=== PATIENT | female | born 1985 | race Caucasian/White ===

== ENCOUNTER 2024-02-13 16:01 | Emergency (ER) | payer MEDICAID, SELFPAY ==
--- NOTE | ~2024-02-13 | XR_ITS ---
EXAMINATION: XR toe 5th RT min 2V DATE: 02/13/2024 16:35 INDICATION: Right fifth toe injury. TECHNIQUE: 3 views of right fifth toe were obtained. COMPARISON: Right foot radiographs 07/19/2006 FINDINGS: Bone alignment is normal. 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 There is a nondisplaced transverse fracture of fifth middle phalanx. Joint spaces are normal. IMPRESSION: 1. Nondisplaced transverse fracture of fifth middle phalanx. Reviewed, dictated and finalized at location E.
[2024-02-13 16:16] VITALS: BP 105/66; PULSE 81; RESP 18; TEMP 36.9; O2SAT 100
--- NOTE | 2024-02-13 16:37 | ED.LOWEXIN ---
HPI - Extremity Injury (Lower) General Chief Complaint: Extremity Injury, Lower Stated Complaint: Pinky Toe Rt Foot Pain and Swelling Time Seen by Provider: 02/13/24 16:37 Source: patient Mode of arrival: ambulatory Limitations: no limitations History of Present Illness HPI Narrative: 38-year-old female presents with complaint of pain, swelling and bruising to right 5th toe. Patient states last night was at a [employer] and throwing water balloons with kids and jammed toe into brick retaining wall. Patient ambulatory with limp. Patient concerned for toe fracture. Distal neurovascularly intact. All systems reviewed and negative except as noted above. Related Data Allergies Allergy/AdvReac Type Severity Reaction Status Date / Time penicillin G Allergy Mild Verified 06/30/10 16:46 Penicillins Allergy Unknown Verified 08/27/17 21:20 Review of Systems Review of Systems: CONSTITUTIONAL: Denies fever, chills, or sweats. EYES: Denies visual changes, redness, or discharge. ENT: Denies rhinorrhea, congestion, sore throat, or otalgia. CARDIOVASCULAR: Denies chest pain, palpitations, or edema. RESPIRATORY: Denies cough or dyspnea. GASTROINTESTINAL: Denies abdominal pain, nausea, vomiting, or diarrhea. GENITOURINARY: Denies dysuria or hematuria. SKIN: Denies rash or itching. MUSCULOSKELETAL: Denies back pain, joint pain, or myalgia. Reports bruising, swelling and pain to right 5th toe. NEUROLOGIC: Denies headache, numbness, or weakness. PSYCHIATRIC: Denies anxiety or depression. All other systems reviewed are negative, except as documented in HPI. PMFSH Comments At time of signature, agree with nursing past medical, surgical, social and family history. There is no relevant family history pertinent to the presenting complaint. Exam Narrative: GENERAL: This is a well-nourished, well-developed patient, in no apparent distress. HEAD: normocephalic, atraumatic. EYES: PERRL. Sclera clear/white. Vision is grossly intact. EARS: External ears normal NOSE: External nose normal NECK: Neck supple, non-tender without lymphadenopathy, masses or thyromegaly. CARDIOVASCULAR: Regular rate and rhythm without murmurs, gallops, or rubs. RESPIRATORY: Clear to auscultation. Breath sounds equal bilaterally. No wheezes, rales, or rhonchi. SKIN: warm, Dry, intact with no suspicious lesions or rash, good texture and turgor. NEURO: awake, alert, and oriented to person, place and time. There were no obvious focal neurologic abnormalities. EXTREMITIES: No joint tenderness, effusion. Swelling to right 5th toe with bruising. Tenderness on palpation middle and distal phalanx. Course Course Level of Care: Express Care Visit Vital Signs Vital signs: Vital Signs Temperature 36.9 C 02/13/24 16:16 Pulse Rate 81 02/13/24 16:16 Respiratory Rate 18 02/13/24 16:16 Blood Pressure 105/66 02/13/24 16:16 Pulse Oximetry 100 02/13/24 16:16 Oxygen Delivery Room Air 02/13/24 16:16 Temperature 36.9 C 02/13/24 16:16 Pulse Rate 81 02/13/24 16:16 Respiratory Rate 18 02/13/24 16:16 Blood Pressure 105/66 02/13/24 16:16 Pulse Oximetry 100 02/13/24 16:16 Oxygen Delivery Room Air 02/13/24 16:16 Reviewed MDM - Extremity Injury (Lower) MDM Narrative Medical decision making narrative: Patient is aware of diagnosis, understands and agrees to treatment plan. Anticipatory guidance given. Patient agrees to follow-up as directed and is aware of reasons to seek care at the emergency department. Portions of this record may have been created with voice recognition software discussed x -ray results with patient. Patient placed in a postop shoe for comfort. Recommended with follow-up with primary care physician in 2-3 weeks to evaluate healing. Imaging Data My impression: Agree with radiologist Radiologist's impression: EXAMINATION: XR toe 5th RT min 2V DATE: 02/13/2024 16:35 INDICATION: Right fifth t
== END 2024-02-13 17:15 | disposition home or self-care (01) ==
PROVIDERS: Emergency Provider Nurse Practitioner Family
DX: S92.524A Nondisplaced fracture of middle phalanx of right lesser toe(s), initial encounter for closed fracture (principal); W22.09XA Striking against other stationary object, initial encounter
CPT/HCPCS: 73660; 99214; G0463

== ENCOUNTER 2024-05-11 08:07 | Emergency (ER) | payer MEDICAID, SELFPAY ==
--- NOTE | ~2024-05-11 | XR_ITS ---
EXAMINATION: XR finger 2nd RT min 2V DATE: 05/11/2024 08:30 INDICATION: Right hand second digit dog bite. TECHNIQUE: 2 views of right hand second digit were obtained. COMPARISON: None. FINDINGS: Alignment is normal. No fracture. Joint spaces are normal. IMPRESSION: 1. No fracture or radiopaque foreign body. Reviewed, dictated and finalized at location A.
--- NOTE | ~2024-05-11 | XR_ITS ---
EXAMINATION: XR finger 2nd RT min 2V DATE: 05/11/2024 08:41 INDICATION: Right hand second digit dog bite. TECHNIQUE: 2 views of right hand second digit were obtained. COMPARISON: None. FINDINGS: Alignment is normal. No fracture. Joint spaces are normal. IMPRESSION: 1. No fracture or radiopaque foreign body. Reviewed, dictated and finalized at location A.
[2024-05-11 08:11] VITALS: BP 122/77; PULSE 86; RESP 19; TEMP 37.1; O2SAT 100
--- NOTE | 2024-05-11 08:11 | ED.GENADULT ---
HPI - General Adult General Chief complaint: Animal Bite Stated complaint: Dog Bite Time Seen by Provider: 05/11/24 08:18 Source: patient, RN notes reviewed and old records reviewed Mode of arrival: ambulatory Limitations: no limitations History of Present Illness HPI narrative: 39-year-old female presents to the [facility] with concerns of a dog bite to her finger. States that it occurred 2 nights ago. Decreased range of motion of the D IP 2nd finger right hand States it was an up-to-date vaccinated dog that belongs to a family member. [place] area noted to the D IP both dorsal and plantar, minor amount of swelling. No increased warmth Bite occurred 2 nights ago on the 09 of May. Related Data Home Medications Medication Instructions Recorded Confirmed loratadine 5 mg-pseudoephedrine ER tablet PO 05/11/24 120 mg tablet,extended release,12hr (Loratadine-D) Allergies Allergy/AdvReac Type Severity Reaction Status Date / Time Penicillins Allergy Unknown Rash Verified 05/11/24 08:24 Review of Systems Review of Systems: All systems reviewed & are unremarkable except as noted in HPI and below Constitutional: Constitutional: Reports no additional constitutional complaints Eyes: Eyes: Reports no additional eye complaints ENT: Reports system reviewed and no additional complaints, except as documented Cardiovascular: Cardiovascular: Reports no additional cardiovascular complaints, Denies chest pain and Denies dyspnea Respiratory: Respiratory: Reports no additional respiratory complaints, Denies chest congestion, Denies cough and Denies dyspnea Gastrointestinal: Gastrointestinal: Reports no additional gastrointestinal complaints, Denies abdominal pain, Denies nausea and Denies vomiting Musculoskeletal: Musculoskeletal: Reports as per HPI Integumentary/Breasts: Skin/Breast: Reports as per HPI Neurologic: Reports system reviewed and no additional complaints, except as documented Psychiatric: Psychiatric: Reports no additional psychiatric complaints Allergic/Immunologic: Allergic/Immunologic: Reports no additional allergic/immunologic complaints PMFSH Comments At the time of my signature, I reviewed and agree with the nursing past medical, surgical, social, and family history. There is no relevant family history pertinent to the patient complaint. Exam Const: General: cooperative, healthy appearing, comfortable, no acute distress, well developed, alert and well nourished Nutritional Appearance: well nourished Orientation/consciousness: patient oriented x3 Limitations: no limitations HENMT: Head: normal to inspection Ears: hearing grossly normal bilaterally and external ears normal Face/Nose/Sinus: Normal external nose present, Normal nares present, Normal nasal mucous membranes and turbinates present, normal facial exam and face symmetric Face and sinus: normal facial exam and face symmetric Eyes: General: appearance normal, both eyes and all related structures Alignment and Position: alignment normal Periorbital: periorbital findings normal Neck: Neck: normal visual inspection, full ROM, no lymphadenopathy and no meningeal signs Chest: Chest palpation & inspection: normal inspection of the chest Resp: Effort & Inspection: normal respiratory effort and able to speak in complete sentences Cardio: Rate: regular rate Skin: General skin exam: normal color and no rashes or lesions noted Lesions: no lesions Rashes: no rashes Trauma: no lacerations or abrasions Other: [place] area right D IP both palmar and dorsal aspect, minor most swelling, no increased warmth Neuro: General: patient oriented x3, gait normal, tone normal, moves all extremities and no meningeal signs Cranial nerves: Yes Equal, round and reactive pupils present Cognition (Neuro): normal cognition Speech: normal speech Gait exam (Neuro): Normal gait present Extrem: General: normal to inspection, full ROM, capillary refill normal
[2024-05-11] MEDS: TETANUS,DIPHTHERIA,AC PERTUSSIS ADULT (0.5 ML) BOOSTRIX IM (09:00)
== END 2024-05-11 09:00 | disposition home or self-care (01) ==
PROVIDERS: Emergency Provider Nurse Practitioner
DX: S61.250A Open bite of right index finger without damage to nail, initial encounter (principal); W54.0XXA Bitten by dog, initial encounter; Z23 Encounter for immunization
CPT/HCPCS: 73140; 90471; 90715; 99213; G0463